=== PATIENT | male | born 2000 | race African-American/Black ===

== ENCOUNTER 2021-08-09 15:08 | Emergency (ER) | payer MEDICAID, OTHER ==
[~2021-08-09] VITALS: Ht 182.9 cm; Wt 118.0 kg
[~2021-08-09 15:08] MED LIST: ABIL5 PO; BUSP30TA2 PO; DEXM10TA PO
[2021-08-09 18:02] VITALS: BP 141/76
== END 2021-08-09 18:03 | disposition home or self-care (01) ==
LOC: ER 15:45
DX: T16.1XXA Foreign body in right ear, initial encounter (principal); X58.XXXA Exposure to other specified factors, initial encounter; Y93.89 Activity, other specified; Y92.89 Other specified places as the place of occurrence of the external cause; Y99.8 Other external cause status; Z88.0 Allergy status to penicillin; Z88.5 Allergy status to narcotic agent
CPT/HCPCS: 99281

== ENCOUNTER 2022-03-20 14:21 | Emergency (ER) | payer MEDICAID ==
[~2022-03-20] VITALS: Ht 175.3 cm; Wt 101.0 kg
[2022-03-20 14:25] VITALS: BP 131/81
[2022-03-20] MEDS ORDERED: IBUPROFEN 800MG TABLET PO ONE (14:45)
[2022-03-20] MEDS ORDERED: IBUP-2030 MT (15:14)
== END 2022-03-20 15:26 | disposition home or self-care (01) ==
LOC: ER 14:50
DX: M25.561 Pain in right knee (principal); I10 Essential (primary) hypertension; F84.0 Autistic disorder; Z88.5 Allergy status to narcotic agent; Z88.0 Allergy status to penicillin; W01.0XXA Fall on same level from slipping, tripping and stumbling without subsequent striking against object, initial encounter; Y93.41 Activity, dancing; Y92.218 Other school as the place of occurrence of the external cause
CPT/HCPCS: 73562; 73590; 99284